=== PATIENT | male | born 1975 | race Caucasian/White ===

== ENCOUNTER 2018-07-07 06:21 | Day surgery (SDC) | payer BC, OTHER ==
[2018-07-05 15:48] VITALS: BMI 42.8
[~2018-07-07 06:21] MED LIST: LACTATED RINGERS 1,000 ML IV SCH
[2018-07-07 06:42] VITALS: RESP 18; TEMP 98.4
[2018-07-07] MEDS ORDERED: LACTATED RINGERS 1,000 ML IV ONE ×2 (06:49)
[2018-07-07 07:04] LABS: Glucose,Whole Blood 113 mg/dL (75-99)
[2018-07-07] MEDS ORDERED: MIDAZOLAM 2 MG/2 ML VIAL ONE (07:11)
[2018-07-07] MEDS ORDERED: LIDOCAINE 1% INJ 10MG/ML (20 ML MDV) ONE (07:11)
[2018-07-07] MEDS ORDERED: PROPOFOL 10 MG/ML 20 ML VIAL IV ONE (07:11)
[2018-07-07] MEDS ORDERED: fentaNYL (PF) 50 MCG/ML 2 ML AMP ONE (07:11)
--- NOTE | 2018-07-07 07:51 | P.PCN ---
Date of Procedure: 07/07/18 Procedure(s) Performed: Brief history: Patient is a pleasant 43-year-old white male, scheduled for an elective upper endoscopy as well as colonoscopy as a part of evaluation of long-standing history of GERD and intermittent rectal bleeding for the last 2 months duration. Patient has history of cystic fibrosis diagnosed as an with minimal pulmonary involvement but chronic pancreatic exocrine insufficiency and constipation. He is maintained on stool softeners on a regular basis. For the last 1 week had significant rectal bleeding almost on a daily basis. He also has long-standing history of gastroesophageal reflux disease and has been maintained on Prilosec 40 mg daily for almost 18 years. Procedure performed: Esophagogastroduodenoscopy with biopsy Colonoscopy with biopsy Preoperative diagnosis: Long-standing history of GERD Intermittent rectal bleeding of 2 months duration Anesthesia: MAC Procedure: After informed consent was obtained from the patient was brought into the endoscopy unit and IV sedation was administered by anesthesia under continuous monitoring. Initially upper endoscopy was done. The Olympus GF 160 video endoscope was inserted inserted into the mouth and esophagus intubated without any difficulty and was gradually advanced into the stomach and duodenum and carefully examined. The bulb and second part of the duodenum appeared normal. The scope was then withdrawn into the stomach adequately insufflated with air and upon careful examination the antrum and body, cardia and fundus appeared normal. There was one small polyp noted in the gastric body which was biopsied. The scope was then withdrawn into the esophagus. The GE junction was located at 40 cm to the incisors. It appeared regular with no erythema erosions or ulcerations. Rest of the esophagus appeared normal. Patient tolerated the procedure well. At this time the patient continued to remain sedation. Initial digital rectal examination was normal. Olympus CF 160 video colonoscope was then inserted into the rectum and gradually advanced to the cecum without any difficulty. Careful examination was performed as the scope was gradually being withdrawn. The prep was fair. Thorough irrigation was performed.. Colon was somewhat redundant. The cecum, ascending colon, transverse colon, descending colon, sigmoid colon and rectum appeared normal. Retroflexion was performed in the rectum and no internal hemorrhoids were noted. However the mucosa just proximal to the dentate line, the mucosa appeared friable and erythematous but no active bleeding. Most likely this represents intermittent rectal prolapse however biopsies were done to rule out polyp. Patient tolerated the procedure well. Impression: 1. Upper endoscopy revealed small gastric polyp but no evidence of esophagitis or Robin's esophagus 2. Colonoscopy revealed mild mucosal friability in the distal rectum just proximal to the dentate line probably representing intermittent rectal prolapse causing the bleeding. No evidence of colon rectal neoplasia or internal hemorrhoids Recommendations: Findings of this examination were discussed with the patient as well as his family. He was advised to follow with the biopsy results. He will continue with stool softeners and will also be started on osmotic laxatives with MiraLAX on a regular basis to avoid straining and constipation.
[2018-07-07 08:10] VITALS: BP 127/84; PULSE 58
== END 2018-07-07 08:34 | disposition home or self-care (01) ==
LOC: ORWHC2ENDO 06:21
PROVIDERS: ATTEND Internal Medicine Gastroenterology
DX: K31.7 Polyp of stomach and duodenum (principal); K21.9 Gastro-esophageal reflux disease without esophagitis; K62.1 Rectal polyp; I10 Essential (primary) hypertension; E11.9 Type 2 diabetes mellitus without complications; E84.9 Cystic fibrosis, unspecified; K86.81 Exocrine pancreatic insufficiency; Z79.899 Other long term (current) drug therapy; Z88.1 Allergy status to other antibiotic agents; Z88.0 Allergy status to penicillin; Z79.84 Long term (current) use of oral hypoglycemic drugs
CPT/HCPCS: 88305; 45380; 43239; J2250; J2001; J3010; J2704

== ENCOUNTER → 2018-09-01 | Outpatient (CLI) | payer BC ==
[2018-09-02 02:10] LABS: Anion Gap 6.9 mmol/L (4.00-12.00); Calcium 8.7 mg/dL (8.7-10.3); Carbon Dioxide 26.1 mmol/L (21.6-31.8); Potassium 3.9 mmol/L (3.5-5.5)
== END ==
LOC: LABWHC1 17:19
PROVIDERS: ATTEND Internal Medicine
DX: I10 Essential (primary) hypertension (principal); E84.9 Cystic fibrosis, unspecified
CPT/HCPCS: 36415; 80048

== ENCOUNTER 2021-12-18 07:03 | Day surgery (SDC) | payer BC ==
[2021-12-16 12:14] VITALS: BMI 28.3
[2021-12-18 07:23] VITALS: TEMP 97
[2021-12-18 07:29] LABS: Glucose,Whole Blood 104 mg/dL (75-99)
[2021-12-18] MEDS ORDERED: PROPOFOL 10 MG/ML 20 ML VIAL IV ONE (08:10)
--- NOTE | 2021-12-18 08:29 | P.PCN ---
Date of Procedure: 12/18/21 Procedure(s) Performed: BRIEF HISTORY: Patient is a 46-year-old pleasant white male male scheduled for an elective colonoscopy as a part of evaluation of intermittent rectal bleeding for the last few months duration. PROCEDURE PERFORMED: Colonoscopy with biopsy. PREOPERATIVE DIAGNOSIS: Intermittent rectal bleeding IV sedation per Anesthesia. PROCEDURE: After informed consent was obtained, the patient, was brought into the endoscopy unit. IV sedation was administered by Anesthesia under continuous monitoring. Digital rectal examination was normal. Initially the Olympus CF-160 flexible video colonoscope was then inserted in the rectum, gradually advanced into the cecum without any difficulty. Careful examination was performed as the scope was gradually being withdrawn. Ileocecal valve and the appendiceal orifice were visualized and appeared normal. Prep was excellent. Mucosa of the cecum, appeared normal in the ascending colon there was a 2 mm polyp that was removed by cold biopsy. Rest of the ascending colon, transverse colon, descending colon, sigmoid colon, and rectum appeared normal. Retroflexion was performed in the rectum and small internal hemorrhoids were seen. The patient tolerated the procedure well. IMPRESSION: 2 mm ascending colon polyp status post cold biopsy Small internal hemorrhoids External skin tags RECOMMENDATIONS: Findings of this examination were discussed with the patient as well as his family. He was advised to follow with the biopsy results. If t he biopsies adenoma he can have a repeat colonoscopy in 5 years. He'll continue with a high-fiber diet and take fiber supplements a regular basis..
[2021-12-18 08:56] VITALS: BP 133/81; PULSE 57; RESP 20
== END 2021-12-18 09:11 ==
LOC: ORWHC2ENDO 07:03
PROVIDERS: ATTEND Internal Medicine Gastroenterology
DX: K63.5 Polyp of colon (principal); K64.8 Other hemorrhoids; K64.4 Residual hemorrhoidal skin tags; I10 Essential (primary) hypertension; E84.9 Cystic fibrosis, unspecified; K21.9 Gastro-esophageal reflux disease without esophagitis; Z79.899 Other long term (current) drug therapy; Z88.1 Allergy status to other antibiotic agents; Z88.0 Allergy status to penicillin
CPT/HCPCS: 88305; 45380; J2704